=== PATIENT | female | born 1975 | race Caucasian/White ===

== ENCOUNTER 2021-03-22 11:43 | Outpatient (REF) | payer OTHER, SELFPAY ==
--- NOTE | ~2021-03-22 | MM_ITS ---
EXAMINATION: MM SCREENING DIGITAL BREAST TOMOSYNTHESIS, BILATERAL CLINICAL INFORMATION: Screening. Asymptomatic. Prior history reduction mammoplasty 2011. The lifetime risk of breast cancer based on the Tyrer-Cuzick Model is 7%. COMPARISON: Mammography: 03/03/2018 (baseline) TECHNIQUE: Digital breast tomosynthesis is performed in both the craniocaudal and mediolateral oblique views along with computer-aided detection (CAD). Synthesized 2D images are generated from the tomosynthesis. FINDINGS: There are scattered areas of fibroglandular density (ACR BI-RADS breast composition Category b). There are no significant masses, abnormal calcifications, or other abnormalities. Parenchymal pattern is similar to prior exams. The axilla and skin contours are unremarkable. No significant changes. MM/MM tomosynthesis screening BI IMPRESSION: No significant change from prior baseline exam. ASSESSMENT: BI-RADS 1: Negative RECOMMENDATION: Routine annual mammography screening. This patient's information was entered into a reminder system with a target due date for their next mammogram.
== END 2021-03-22 11:44 | disposition home or self-care (01) ==
LOC: HO.MAMMO 11:43
PROVIDERS: PCP Family Medicine; Visit Provider Family Medicine
DX: Z12.31 Encounter for screening mammogram for malignant neoplasm of breast (principal)
CPT/HCPCS: 77063; 77067

== ENCOUNTER 2023-07-06 08:11 | Outpatient (REF) | payer OTHER, SELFPAY ==
--- NOTE | ~2023-07-06 | FL_ITS ---
EXAMINATION: XR FLUOROSCOPY UPPER GI WITH AIR CLINICAL INFORMATION: 47-year-old female complaining of severe gastroesophageal reflux, recent positive test and treatment for H. pylori. COMPARISON: No relevant prior. TECHNIQUE: Standard technique air contrast upper GI examination was performed during the ingestion of thick and thin barium with effervescent granules. Numerous fluoroscopic spot images were obtained. FINDINGS: The oropharyngeal and hypopharyngeal swallow reflex appeared normal. Normal appearance of the hypopharynx without mass, or diverticulum. No significant cricopharyngeal bar. Normal epiglottic movement and soft palate elevation noted. No evidence of laryngeal penetration or aspiration. Esophagus is normal in caliber and course. No stricture, mass, or mucosal abnormality identified. No evidence of esophagitis. There was episodic gastroesophageal reflux to the level of the thoracic inlet, noted numerous times during the examination. There was a tiny type I hiatus hernia. Images of the stomach, gastric fold pattern, and gastric contours appear normal. Images of the duodenal bulb, duodenal sweep, and proximal jejunum appear normal with normal fold pattern. Incidentally noted are cholecystectomy clips. FLUOROSCOPY TIME: 3.2 minutes 31 spot images obtained. DOSE AREA PRODUCT: 47.885 uGy-m2 (microgray-meter squared) FL/FL barium swallow with air IMPRESSION: Episodic significant gastroesophageal reflux to the level of the thoracic inlet. Tiny type I hiatus hernia. No esophageal mucosal abnormality mass, or stricture. Normal motility. Normal stomach, duodenal bulb, duodenal sweep, and proximal jejunum.
== END 2023-07-06 08:12 | disposition home or self-care (01) ==
LOC: HO.XRAY 08:11
PROVIDERS: PCP Nurse Practitioner; Visit Provider Nurse Practitioner
DX: K21.9 Gastro-esophageal reflux disease without esophagitis (principal); E03.9 Hypothyroidism, unspecified; E66.3 Overweight
CPT/HCPCS: 74221

== ENCOUNTER → 2023-07-06 08:14 | Outpatient (BNV) | payer OTHER, SELFPAY | PROVIDERS: PCP Nurse Practitioner; Visit Provider Radiology Diagnostic Radiology | DX: K21.9 Gastro-esophageal reflux disease without esophagitis (principal) | CPT/HCPCS: 74221 ==

== ENCOUNTER 2024-03-01 07:15 | Outpatient (REF) | payer OTHER, SELFPAY ==
--- NOTE | ~2024-03-01 | MM_ITS ---
EXAMINATION: MM SCREENING DIGITAL BREAST TOMOSYNTHESIS, BILATERAL CLINICAL INFORMATION: Screening. Asymptomatic. The patient is status post bilateral breast reduction. COMPARISON: Mammography: This study is compared with prior exams dating back to 2018. TECHNIQUE: Digital breast tomosynthesis is performed in both the craniocaudal and mediolateral oblique views along with computer-aided detection (CAD). Synthesized 2D images are generated from the tomosynthesis. FINDINGS: There are scattered areas of fibroglandular density (ACR BI-RADS breast composition Category b). There are no significant masses, abnormal calcifications, or other abnormalities. Bilateral post reduction changes are present. MM/MM tomosynthesis screening BI IMPRESSION: No mammographic evidence of malignancy. ASSESSMENT: BI-RADS BI-RADS 2 - Benign Findings RECOMMENDATION: Routine annual mammography screening. 1 year F/U This examination should not preclude the clinical evaluation of a suspicious palpable abnormality. This patient's information was entered into a reminder system with a target due date for their next mammogram.
== END 2024-03-01 07:16 | disposition home or self-care (01) ==
LOC: HO.MAMMO 07:15
PROVIDERS: PCP Nurse Practitioner; Visit Provider Nurse Practitioner
DX: Z12.31 Encounter for screening mammogram for malignant neoplasm of breast (principal)
CPT/HCPCS: 77063; 77067

== ENCOUNTER → 2024-03-01 07:30 | Outpatient (BNV) | payer OTHER, SELFPAY | PROVIDERS: PCP Nurse Practitioner; Visit Provider Radiology Diagnostic Radiology | DX: Z12.31 Encounter for screening mammogram for malignant neoplasm of breast (principal) | CPT/HCPCS: 77063; 77067 ==

== ENCOUNTER 2025-03-17 07:28 | Outpatient (REF) | payer OTHER, SELFPAY | END 2025-03-17 07:29 | disposition home or self-care (01) | LOC: HO.MAMMO 07:28 | PROVIDERS: PCP Nurse Practitioner; Visit Provider Nurse Practitioner | DX: Z12.31 Encounter for screening mammogram for malignant neoplasm of breast (principal) | CPT/HCPCS: 77063; 77067 ==

== ENCOUNTER → 2025-03-17 07:38 | Outpatient (BNV) | payer OTHER, SELFPAY | PROVIDERS: PCP Nurse Practitioner; Visit Provider Internal Medicine | DX: Z12.31 Encounter for screening mammogram for malignant neoplasm of breast (principal) | CPT/HCPCS: 77063; 77067 ==